=== PATIENT | female | born 1955 | race Caucasian/White ===

== ENCOUNTER 2019-04-03 13:36 | Emergency (ER) | payer SELFPAY ==
[2019-04-03 13:46] VITALS: BP 132/80
[2019-04-03] MEDS ORDERED: HYDROcod/ACETAM 5/325 MG TABLET PO STA (14:31)
--- NOTE | 2019-04-03 14:32 | ED Physician Documentation ---
PD HPI LOWER EXT INJURY - Stated complaint Stated Complaint: KNEE INJURY - Chief complaint Chief Complaint: Trauma Ext - History obtained from History obtained from: Patient (Last night she was walking her dog, the leash got yanked and she felt a pop on the medial side of the right knee with moderate pain. She is able to walk and bear weight. No other injuries. No history of trouble with that knee in the past.) Review of Systems Constitutional: reports: Reviewed and negative Throat: reports: Reviewed and negative Cardiac: reports: Reviewed and negative PD PAST MEDICAL HISTORY - Present Medications Home Medications: Ambulatory Orders Medication Instructions Recorded Confirmed Hydrocodone/Acetaminophen 1 - 2 each PO Q6H PRN #14 tablet 04/03/19 [Hydrocodon-Acetaminophen 5-325] - Allergies Allergies/Adverse Reactions: Allergies Allergy/AdvReac Type Severity Reaction Status Date / Time codeine Allergy Itching Verified 04/03/19 13:43 PD ED PE NORMAL - Vitals Vital signs reviewed: Yes - General General: Alert and oriented X 3, No acute distress - Abdomen Abdomen: Soft, Non tender - Extremities Extremities: Other (She is tender along the medial joint line and has a lot of pain with MCL testing. LCL, PCL, ACL testing is tight and painless. Negative grind testing. Minimal if any effusion.) - Neuro Neuro: Alert and oriented X 3, Normal speech Results - Vitals Vitals: Vital Signs - 24 hr 04/03/19 13:43 Temperature 36.7 C Heart Rate 88 Respiratory 15 Rate Blood Pressure 132/80 H O2 Saturation 97 Oxygen O2 Source Room air PD MEDICAL DECISION MAKING - ED course ED course: 63-year-old woman with knee injury consistent with an MCL strain, x-rays negative. Placed in knee immobilizer and advised that she needs to follow-up with orthopedics. Departure - Departure Disposition: Home, Self Care Clinical Impression: Strain of knee and leg, right Qualifiers: Encounter type: initial encounter Qualified Code(s): S86.911A - Strain of unspecified muscle(s) and tendon(s) at lower leg level, right leg, initial encounter Condition: Good Record reviewed to determine appropriate education?: Yes Instructions: MCL Sprain, ED Sprain Knee Collateral Ligaments Follow-Up: Fredy Schreiber MD [Provider Admit Priv/Credential] - Prescriptions: Hydrocodone/Acetaminophen [Hydrocodon-Acetaminophen 5-325] 1 - 2 each PO Q6H PRN #14 tablet PRN Reason: pain Comments: As discussed, your examination is consistent with a strain of the medial collateral ligament of the right knee. Follow-up with the orthopedic surgeon listed on this form, call today for an appointment. Keep the knee immobilizer on when you are up and around, you can walk and bear weight.
--- NOTE | 2019-04-03 15:09 | XRAY Report ---
Reason: knee inj Procedure Date: 04/03/2019 Accession Number: [id number] / [id number] Procedure: XR - Knee 4 View RT CPT Code: Final Report FULL RESULT: EXAM: RIGHT KNEE RADIOGRAPHY EXAM DATE: 04/03/2019 03:02 PM. CLINICAL HISTORY: Knee injury, pain. COMPARISON: None. TECHNIQUE: 4 views. FINDINGS: Bones: No acute fracture. Joints: No dislocation or subluxation. No significant degenerative change. A small joint effusion is present. Soft Tissues: Unremarkable. IMPRESSION: 1. No acute fracture or malalignment. 2. Small joint effusion. RADIA
== END 2019-04-03 15:37 | disposition home or self-care (01) ==
LOC: ED 13:36
DX: S86.911A Strain of unspecified muscle(s) and tendon(s) at lower leg level, right leg, initial encounter (principal); X50.1XXA Overexertion from prolonged static or awkward postures, initial encounter; Y93.K1 Activity, walking an animal
CPT/HCPCS: 73564; 99283; A9270

== ENCOUNTER 2019-08-17 20:37 | Emergency (ER) | payer OTHER ==
--- NOTE | 2019-08-17 21:30 | XRAY Report ---
Reason: twisted L knee, c/o pain Procedure Date: 08/17/2019 Accession Number: [id number] / [id number] Procedure: XR - Knee 3 View LT CPT Code: Final Report FULL RESULT: EXAM: LEFT KNEE RADIOGRAPHY EXAM DATE: 08/17/2019 09:20 PM. CLINICAL HISTORY: Twisted left knee, complaint of pain. COMPARISON: KNEE 4 VIEW RT 04/03/2019 2:57 PM. TECHNIQUE: 3 views. FINDINGS: Bones: Normal. No fractures or bone lesions. Joints: Normal. No effusion. No subluxations. Soft Tissues: Normal. No soft tissue swelling. IMPRESSION: Normal knee radiography. RADIA
[2019-08-17] MEDS ORDERED: IBUPROFEN 600 MG TABLET PO STA (21:32)
[2019-08-17] MEDS ORDERED: ACETAMINOPHEN 325 MG TABLET PO STA (21:32)
--- NOTE | 2019-08-17 21:32 | ED Physician Documentation ---
History of Present Illness - Stated complaint Stated Complaint: KNEE PX - Chief complaint Chief Complaint: Trauma Ext - Additonal information Additional information: This is a 64-year-old female who presents with left knee pain. She was walking her dog and her dog began chasing a cat causing her knee to twist. She has pain over the knee and the medial aspect and can a diffusely around the knee. She denies hearing any pop or crack. She did not fall or directly impact the knee. She is able to walk on the knee but it hurts quite a bit. She denies any numbness or weakness in the leg. Review of Systems Constitutional: denies: Fever Skin: denies: Rash, Abrasion (s) Musculoskeletal: reports: Extremity pain Neurologic: denies: Focal weakness PD PAST MEDICAL HISTORY - Past Medical History Past Medical History: No - Present Medications Home Medications: Ambulatory Orders Medication Instructions Recorded Confirmed Hydrocodone/Acetaminophen 1 - 2 each PO Q6H PRN #14 tablet 04/03/19 [Hydrocodon-Acetaminophen 5-325] - Allergies Allergies/Adverse Reactions: Allergies Allergy/AdvReac Type Severity Reaction Status Date / Time codeine Allergy Itching Verified 08/17/19 20:50 - Social History Does the pt smoke?: Yes Smoking Status: Current every day smoker Does the pt drink ETOH?: Yes Does the pt have substance abuse?: No - POLST Patient has POLST: No PD ED PE NORMAL - Vitals Vital signs reviewed: Yes - General General: Alert and oriented X 3, No acute distress - HEENT HEENT: PERRL - Neck Neck: Supple, no meningeal sign - Cardiac Cardiac: RRR, No murmur - Respiratory Respiratory: No respiratory distress - Abdomen Abdomen: Non distended - Derm Derm: Warm and dry - Extremities Extremities: Other (Mild edema around the left knee, no palpable effusion. There is some tenderness on the MCL, but no laxity with varus or valgus stress testing. Anterior posterior drawer testing is limited due to discomfort, but no severe laxity. Patient is able to flex and extend the knee with some discomfort. Distal strength of the ankle with dorsiflexion plantarflexion is 5 out of 5, distal pulses at the DP and PT pulses are normal at 2+. Sensation intact over the lower extremity.) - Neuro Neuro: Alert and oriented X 3 - Psych Psych: Normal mood, Normal affect Results - Vitals Vitals: Vital Signs - 24 hr 08/17/19 08/17/19 20:40 21:48 Temperature 36.6 C Heart Rate 65 83 Respiratory 16 18 Rate Blood Pressure 123/65 146/78 H O2 Saturation 98 98 Oxygen O2 Source Room air - Rads (name of study) XR L knee Radiology: Other (No acute osseous abnormality, no large effusion) PD MEDICAL DECISION MAKING - ED course ED course: Patient presents with knee pain after a twisting motion. She has tenderness around the left knee especially over the MCL, but no bony point tenderness. In- depth ligamentous testing is not able to be completely performed due to her discomfort. Her leg is neurovascularly intact. Her x-ray shows no acute abnormality, and given her range of motion and ability to bear some weight on the knee I doubt occult fracture. I do think is possible that she may have had a strain, sprain, or ligamentous injury to her knee, we discussed rest, ice, compression, elevation, and avoidance of any further trauma to the knee. She has a knee immobilizer at home that she would like to use from a prior MCL injury, so she was not outfitted with a new one here. I recommended crutches, patient does not feel that she can use crutches safely, she prefer to use her knee immobilizer and Feels safe and mobile enough with this support alone. She has an orthopedist that she is established with that she will follow-up with with continued symptoms, I discussed that if she is unable to see orthopedist she may also follow with her primary care provider. I provided her with a work note, we discussed return precautions, patient was discharged home in good condition. Departure - Departure Disposition: 01 Home, Self Care Clinical Impression: Left knee pain Qualifiers: Chronicity: acute Qualified Code(s): M25.562 - Pain in left knee Condition: Good Follow-Up: Your, orthopedist [Other] - Within 1 week Comments: Your x-ray did not show signs of injury to your bones, but you may have an injury to the ligaments or cartilage in your knee. Please wear your knee immobilizer as we discussed, take Tylenol and ibuprofen for discomfort, elevate the leg, and ice it. Avoid movements or activities that make your pain worse. Use crutches if needed. Follow-up with your orthopedist in the next week for a repeat exam, or with your primary care provider. If you are having worsening symptoms such as weakness or numbness, return to emergency department. Forms: Activity restrictions Discharge Date/Time: 08/17/19 21:54
[2019-08-17 21:49] VITALS: BP 146/78
== END 2019-08-17 21:54 | disposition home or self-care (01) ==
LOC: ED 20:37
DX: M25.562 Pain in left knee (principal); F17.200 Nicotine dependence, unspecified, uncomplicated
CPT/HCPCS: 73562; 99283; A9270

== ENCOUNTER 2019-09-15 15:15 | Outpatient (CLI) | payer OTHER ==
--- NOTE | 2019-09-15 16:48 | MRI Report ---
PROCEDURE: Knee LT W/O INDICATIONS: Knee pain and injury. TECHNIQUE: Noncontrast sagittal PD fast spin echo and T2 fast spin echo with fat saturation, sagittal 3-D gradie nt sequence with fat saturation; coronal T1 spin echo and PD fast spin echo with fat saturation, and axial PD fast spin echo with fat saturation through the knee. COMPARISON: None. FINDINGS: Image quality: Excellent. Menisci: There is linear oblique high T2 signal intensity traversing the posterior horn medial menisc us, demonstrating inferior articular surface extension. There is fragmentation of the anterior horn l ateral meniscus, indicating complex multifocal tearing. Cruciate ligaments: The anterior cruciate ligament demonstrates severe T2 signal elevation in mild r edundancy. Posterior cruciate ligament is intact. Medial structures: There is moderate grade partial-thickness tearing of the mid/superior aspect of th e medial collateral ligament. Visualized portions of the pes anserinus tendons appear normal. No abn ormal bursal fluid. Lateral structures: The lateral collateral ligament, long and short heads of the biceps femoris tend on appear intact. The popliteus tendon appears normal. Iliotibial band appears normal. Anterior structures: The quadriceps and patellar tendons appear intact. Lateral patellar subluxation is present. No femoral trochlear dysplasia or ventral trochlear prominence. Mild edema in the super olateral aspect of the infrapatellar fat pad. Bones and cartilage: No bone marrow contusions or fractures. There is mild ill-defined T2 signal int ensity within the anterior central aspect of the tibial plateau. There is mild ill-defined T2 signal elevation within the posterior weightbearing aspect of the lateral tibial plateau. Mild tricompartmen chai periarticular osteophyte formation is present. There is mild diffuse articular cartilage loss ove rlying the weightbearing aspects of the medial femoral condyle and medial tibial plateau. There is a superimposed full-thickness articular cartilage defect overlying the mid/posterior weightbearing aspe ct of the medial femoral condyle, measuring roughly 10 mm anteroposterior by 2 mm transverse. Moderat e diffuse articular cartilage loss overlies the weightbearing aspects of the lateral femoral condyle and lateral tibial plateau. 2 mm superimposed region of full-thickness articular cartilage loss overl ies the posterior weightbearing aspect of the lateral femoral condyle. Joint space: There is a moderate knee joint effusion and a moderate Mendoza?s cyst. Multiple intra-art icular loose bodies, largest of which is in the lateral aspect of the Mendoza's cyst measuring roughly 8 mm. Normal appearing synovial plicae are incidentally noted. IMPRESSION: 1. High-grade anterior cruciate ligament tear. 2. Medial and lateral meniscal tear. 3. Contusions within the tibial plateau. 4. Tricompartmental osteoarthritis with associated articular cartilage loss. 5. Knee joint effusion and Mendoza's cyst. Intra-articular loose bodies. 6. Partial thickness medial collateral ligament tear. 7. Findings consistent with lateral patellofemoral friction syndrome in the appropriate clinical sett ing. Reviewed by: Buffy Morales MD on 09/15/2019 4:47 PM PDT Approved by: Buffy Morales MD on 09/15/2019 4:47 PM PDT Station ID: [id number]
== END 2019-09-15 15:16 | disposition home or self-care (01) ==
LOC: DI 15:15
PROVIDERS: ATTEND Orthopaedic Surgery
DX: S83.512A Sprain of anterior cruciate ligament of left knee, initial encounter (principal); S83.242A Other tear of medial meniscus, current injury, left knee, initial encounter; S83.282A Other tear of lateral meniscus, current injury, left knee, initial encounter; S83.412A Sprain of medial collateral ligament of left knee, initial encounter; S80.12XA Contusion of left lower leg, initial encounter; M71.22 Synovial cyst of popliteal space [Baker], left knee; M17.12 Unilateral primary osteoarthritis, left knee

== ENCOUNTER 2020-02-29 08:00 | Outpatient (CLI) | payer OTHER | END 2020-02-29 23:59 | disposition home or self-care (01) | LOC: LAB.R 08:00 | PROVIDERS: ATTEND Physician Assistant Medical | DX: J40 Bronchitis, not specified as acute or chronic (principal); Z20.828 Contact with and (suspected) exposure to other viral communicable diseases ==

== ENCOUNTER 2020-02-29 10:51 | Outpatient (CLI) | payer OTHER ==
--- NOTE | 2020-02-29 11:13 | XRAY Report ---
PROCEDURE: Chest 2 View X-Ray INDICATIONS: BRONCHITIS TECHNIQUE: 2 view(s) of the chest. COMPARISON: None. FINDINGS: Surgical changes and devices: None. Lungs and pleura: No pleural effusions or pneumothorax. Lungs are clear. Mediastinum: Mediastinal contours are normal. Heart size is normal. Bones and chest wall: No suspicious bony abnormalities. Soft tissues appear unremarkable. IMPRESSION: No acute cardiopulmonary abnormality identified. Reviewed by: Jeyson Metcalf MD on 02/29/2020 11:11 AM [facility] Approved by: Jeyson Metcalf MD on 02/29/2020 11:11 AM [facility] Station ID: [id number]
== END 2020-02-29 23:59 | disposition home or self-care (01) ==
LOC: DI.N 10:51
PROVIDERS: ATTEND Physician Assistant Medical
DX: J40 Bronchitis, not specified as acute or chronic (principal)

== ENCOUNTER 2020-03-07 08:00 | Outpatient (CLI) | payer OTHER | END 2020-03-07 23:59 | disposition home or self-care (01) | LOC: LAB.R 08:00 | PROVIDERS: ATTEND Nurse Practitioner | DX: J06.9 Acute upper respiratory infection, unspecified (principal); Z20.828 Contact with and (suspected) exposure to other viral communicable diseases | CPT/HCPCS: 87275; 87276 ==

== ENCOUNTER 2020-03-07 12:37 | Outpatient (CLI) | payer OTHER ==
--- NOTE | 2020-03-07 14:37 | XRAY Report ---
PROCEDURE: Chest 2 View X-Ray INDICATIONS: ACUTE UPPER RESPIRATORY INFECTION TECHNIQUE: 2 views of the chest. COMPARISON: Chest radiographs 02/29/2020 FINDINGS: Surgical changes and devices: None. Lungs and pleura: No pleural effusions or pneumothorax. Lungs are clear. Mediastinum: Mediastinal contours are normal. Heart size is normal. Bones and chest wall: No suspicious bony abnormalities. Soft tissues appear unremarkable. IMPRESSION: No acute cardiopulmonary abnormality. Reviewed by: Shmuel Carter MD on 03/07/2020 1:35 PM [facility] Approved by: Shmuel Carter MD on 03/07/2020 1:35 PM [facility] Station ID: [id number]
== END 2020-03-07 23:59 | disposition home or self-care (01) ==
LOC: DI.N 12:37
PROVIDERS: ATTEND Nurse Practitioner
DX: J06.9 Acute upper respiratory infection, unspecified (principal)

== ENCOUNTER 2020-12-06 08:00 | Outpatient (CLI) | payer OTHER | END 2020-12-06 23:59 | disposition home or self-care (01) | LOC: LAB.N 08:00 | PROVIDERS: ATTEND Family Medicine | DX: J06.9 Acute upper respiratory infection, unspecified (principal); Z20.822 Contact with and (suspected) exposure to COVID-19 ==

== ENCOUNTER 2020-12-10 12:24 | Outpatient (CLI) | payer OTHER ==
--- NOTE | 2020-12-10 18:17 | XRAY Report ---
PROCEDURE: Chest 2 View X-Ray INDICATIONS: WALKING PNEUMONIA TECHNIQUE: 2 view(s) of the chest. COMPARISON: 03/07/2020, 02/29/2020 FINDINGS: Surgical changes and devices: None. Lungs and pleura: No pleural effusions or pneumothorax. Lungs are clear. Mediastinum: Mediastinal contours are normal. Heart size is normal. Bones and chest wall: No suspicious bony abnormalities. Age-appropriate degenerative changes are see n. S-shaped scoliotic curvature is incidentally noted. Soft tissues appear unremarkable. IMPRESSION: Negative for infiltrate. Reviewed by: Allan Aelman MD on 12/10/2020 5:15 PM [facility] Approved by: Allan Aleman MD on 12/10/2020 5:15 PM [facility] Station ID: [id number]
== END 2020-12-10 23:59 | disposition home or self-care (01) ==
LOC: DI.N 12:24
PROVIDERS: ATTEND Nurse Practitioner
DX: J18.9 Pneumonia, unspecified organism (principal); Z20.822 Contact with and (suspected) exposure to COVID-19

== ENCOUNTER 2021-08-11 16:23 | Outpatient (CLI) | payer OTHER ==
[2021-08-11] MEDS ORDERED: ALBUTEROL 1 PUFF INH STA (18:20)
== END 2021-08-11 16:24 | disposition home or self-care (01) ==
LOC: RT 16:23
PROVIDERS: ATTEND Registered Nurse
DX: J98.8 Other specified respiratory disorders (principal); Z72.0 Tobacco use
CPT/HCPCS: 94060; 94729

== ENCOUNTER 2021-12-06 17:59 | Outpatient (CLI) | payer OTHER ==
--- NOTE | 2021-12-07 04:07 | XRAY Report ---
PROCEDURE: Knee 2 View RT INDICATIONS: RIGHT KNEE POPLITEAL CYST TECHNIQUE: 3 views of the right knee including bilateral AP standing view of both knees were acquire d. COMPARISON: 04/03/2019. FINDINGS: Bones: No fractures or dislocations. Joint spaces in the medial and lateral compartments appear pres erved. No suspicious bony lesions. Soft tissues: There is a moderate joint effusion. No suspicious soft tissue calcifications. IMPRESSION: 1. No acute bony abnormality. 2. Moderate joint effusion. Reviewed by: Paulo Friedman MD on 12/07/2021 4:06 AM PDT Approved by: Paulo Friedman MD on 12/07/2021 4:06 AM PDT Station ID: [id number]
== END 2021-12-06 18:00 | disposition home or self-care (01) ==
LOC: DI.S 17:59
PROVIDERS: ATTEND Internal Medicine
DX: M25.461 Effusion, right knee (principal)

== ENCOUNTER 2022-01-15 08:51 | Outpatient (CLI) | payer OTHER ==
--- NOTE | 2022-01-27 11:10 | Mammography Report ---
BILATERAL DIGITAL SCREENING MAMMOGRAM 3D/2D: 01/15/2022 CLINICAL: Routine screening. No prior exams were available for comparison. There are scattered areas of fibroglandular density in both breasts (category b / 25%-50% glandular t issue). No significant masses, calcifications, or other findings are seen in either breast. IMPRESSION: NEGATIVE There is no mammographic evidence of malignancy. A 1 year screening mammogram is recommended. Based on the Tyrer Cuzick model (a risk assessment model) the patients lifetime risk is 4.7% and her 10 year risk is 2.3%. According to the ACR, ACS, and NCCN guidelines, an annual breast MRI exam flaco g with mammogram is recommended if the patients lifetime risk is 20% or greater. This exam was interpreted at Station ID: [id number]. NOTE: For mammograms, a report in lay terms will be sent to the patient. Approximately 15% of breast malignancies will not be visualized mammographically. In the management of a palpable breast mass, a negative mammogram must not discourage biopsy of a clinically suspicious lesion. Electronically Signed By: Jeyson queen/penrad:01/27/2022 08:30:26 ACR BI-RADS Category 1: Negative 3341F PARENCHYMAL PATTERN: (A) - The breast(s) demonstrate(s) scattered fibroglandular densities. BI-RADS CATEGORY: (1) - 1 RECOMMENDATION: (ANNUAL) - Recommend routine annual screening mammography. [id number] 1 year screening LATERALITY: (B)
== END 2022-01-15 08:52 | disposition home or self-care (01) ==
LOC: DI.N 08:51
DX: Z12.31 Encounter for screening mammogram for malignant neoplasm of breast (principal)

== ENCOUNTER 2023-01-14 09:33 | Outpatient (CLI) | payer OTHER ==
--- NOTE | 2023-01-15 10:01 | Mammography Report ---
BILATERAL DIGITAL SCREENING MAMMOGRAM 3D/2D: 01/14/2023 CLINICAL: Routine screening. Comparison is made to exam dated: 01/15/2022 mammogram - [facility]. There are scattered areas of fibroglandular density in both breasts (category b / 25%-50% glandular t issue). No significant masses, calcifications, or other findings are seen in either breast. There has been no significant interval change. IMPRESSION: NEGATIVE There is no mammographic evidence of malignancy. A 1 year screening mammogram is recommended. Based on the Tyrer Cuzick model (a risk assessment model) the patients lifetime risk is 4.5% and her 10 year risk is 2.3%. According to the ACR, ACS, and NCCN guidelines, an annual breast MRI exam flaco g with mammogram is recommended if the patients lifetime risk is 20% or greater. This exam was interpreted at Station ID: [id number]. NOTE: For mammograms, a report in lay terms will be sent to the patient. Approximately 15% of breast malignancies will not be visualized mammographically. In the management of a palpable breast mass, a negative mammogram must not discourage biopsy of a clinically suspicious lesion. Electronically Signed By: Manuel Kingsley M.D. aty/:01/15/2023 07:29:40 letter sent: No_Letter ACR BI-RADS Category 1: Negative 3341F PARENCHYMAL PATTERN: (A) - The breast(s) demonstrate(s) scattered fibroglandular densities. BI-RADS CATEGORY: (1) - 1 Mammogram [id number] 1 year screening LATERALITY: (B)
== END 2023-01-14 09:34 | disposition home or self-care (01) ==
LOC: DI.N 09:33
PROVIDERS: ATTEND Registered Nurse
DX: Z12.31 Encounter for screening mammogram for malignant neoplasm of breast (principal); R92.323 Mammographic fibroglandular density, bilateral breasts

== ENCOUNTER 2023-02-17 12:13 | Emergency (ER) | payer OTHER, MEDICARE ==
[2023-02-17 12:33] VITALS: BP 129/63; O2SAT 99
--- NOTE | 2023-02-17 13:20 | XRAY Report ---
PROCEDURE: Chest 1 View X-Ray INDICATIONS: cough TECHNIQUE: One view of the chest was acquired. COMPARISON: Chest x-ray 12/10/2020 FINDINGS: Surgical changes and devices: None. Lungs and pleura: No pleural effusions or pneumothorax. Lungs are clear. Mediastinum: Mediastinal contours appear normal. Heart size is normal. Bones and chest wall: No suspicious bony lesions. Overlying soft tissues appear unremarkable. IMPRESSION: No acute cardiopulmonary process. Reviewed by: Deandra Hutton MD on 02/17/2023 1:19 PM [facility] Approved by: Deandra Hutton MD on 02/17/2023 1:19 PM [facility] Station ID: [id number]
[2023-02-17 13:33] LABS: CORONAVIRUS 229E-RESP PCR NOT DETECTED; CORONAVIRUS HKU1-RESP PCR NOT DETECTED; CORONAVIRUS NL63-RESP PCR NOT DETECTED; CORONAVIRUS OC43-RESP PCR NOT DETECTED; HUMAN METAPNEUMOVIRUS NOT DETECTED; INFLUENZA A- RESP PCR PANEL NOT DETECTED; INFLUENZA B - RESP PCR PANEL NOT DETECTED; PARAINFLUENZA VIRUS 1 NOT DETECTED; PARAINFLUENZA VIRUS 2 NOT DETECTED; PARAINFLUENZA VIRUS 3 NOT DETECTED; RHINOVIRUS/ENTEROVIRUS NOT DETECTED; SARS-CoV-2 -RESP PCR PANEL NOT DETECTED
[2023-02-17 13:34] LABS: B. PARAPERTUSSIS- RESP PCR PAN NOT DETECTED; B. PERTUSSIS- RESP PCR PANEL NOT DETECTED; C. PNEUMONIAE- RESP PCR PANEL NOT DETECTED; M. PNEUMONIAE- RESP PCR PANEL NOT DETECTED; PARAINFLUENZA VIRUS 4 NOT DETECTED; RSV- RESP PCR PANEL NOT DETECTED
--- NOTE | 2023-02-17 14:07 | ED Physician Documentation ---
History of Present Illness - Stated complaint Stated Complaint: SOA,COUGH,CONGESTION - Chief complaint Chief Complaint: Resp - Additonal information Additional information: 67-year-old female presents emergency department for evaluation of cough and congestion has been present for a week. Reports cough is productive particularly bad at night despite trying to sleep upright on pillows. She is a current tobacco user, smoking 3 cigarettes a day on average. No fevers. She was seen a local walk-in clinic last week and given Tessalon Perles without relief. Review of Systems Constitutional: denies: Fever Nose: reports: Rhinorrhea / runny nose, Congestion Respiratory: reports: Cough. 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 PHARMACEUTICAL: Ectopic Psych: Depression, Anxiety Other Past Medical History: bronchitis - Past Surgical History Past Surgical History: No - Present Medications Home Medications: Ambulatory Orders Medication Instructions Recorded Confirmed Albuterol Sulf [Ventolin Hfa 1 - 2 puffs INH Q4HR PRN 02/17/23 02/17/23 Inhaler] Benzonatate [Tessalon] 100 mg PO TID PRN 02/17/23 02/17/23 Propranolol [Inderal] 10 mg PO TID PRN 02/17/23 02/17/23 Sertraline [Zoloft] 50 mg PO DAILY 02/17/23 02/17/23 - Allergies Allergies/Adverse Reactions: Allergies Allergy/AdvReac Type Severity Reaction Status Date / Time codeine Allergy Itching Verified 02/17/23 12:30 - Social History Does the pt smoke?: Yes Smoking Status: Current every day smoker Does the pt drink ETOH?: Yes Does the pt have substance abuse?: No - POLST Patient has POLST: No PD ED PE NORMAL - General General: Alert and oriented X 3, Well developed/nourished - HEENT HEENT: Atraumatic, Ears normal, Moist mucous membranes - Neck Neck: Supple, no meningeal sign - Cardiac Cardiac: RRR, No murmur - Respiratory Respiratory: No respiratory distress, Clear bilaterally - Abdomen Abdomen: Normal bowel sounds, Soft Results - Vitals Vitals: Vital Signs - 24 hr 02/17/23 12:23 Temperature 36.5 C Heart Rate 82 Respiratory 16 Rate Blood Pressure 129/63 O2 Saturation 99 Oxygen O2 Source Room air - Labs Labs: Laboratory Tests 02/17/23 12:34 Nasal Adenovirus (PCR) NOT DETECTED Nasal B. parapertussis DNA (PCR) NOT DETECTED Nasal Coronavir 229E PCR NOT DETECTED Nasal Coronavir HKU1 PCR NOT DETECTED Nasal Coronavir NL63 PCR NOT DETECTED Nasal Coronavir OC43 PCR NOT DETECTED Nasal Enterovir/Rhinovir PCR NOT DETECTED Nasal Influenza B PCR NOT DETECTED Nasal Influenza A PCR NOT DETECTED Nasal Parainfluen 1 PCR NOT DETECTED Nasal Parainfluen 2 PCR NOT DETECTED Nasal Parainfluen 3 PCR NOT DETECTED Nasal Parainfluen 4 PCR NOT DETECTED Nasal RSV (PCR) NOT DETECTED Nasal B.pertussis DNA PCR NOT DETECTED Nasal C.pneumoniae (PCR) NOT DETECTED Jesus Alberto Human Metapneumo PCR NOT DETECTED Nasal M.pneumoniae (PCR) NOT DETECTED Nasal SARS-CoV-2 (PCR) NOT DETECTED - Rads (name of study) cxr Relevant Findings:: Final report received (no acute cardiopulmonary process) PD Medical Decision Making - ED course Complexity details: reviewed results, d/w patient ED course: 67-year-old female presents emergency department for evaluation of cough and congestion that began a week ago. Unresponsive Tessalon Perles. No fevers. States cough is worse at night especially when laying flat though she has been trying to sleep upright. Has taken Robitussin without relief of symptoms. Here in the ER chest x-ray is without acute focal findings or opacities. Cardiopulmonary auscultation was unremarkable. Room air sats were 99%. She sounds quite congested but had no significant tenderness with palpation of the sinuses. Respiratory PCR panel was negative. Clinically I suspected that she had a viral URI that should be quickly resolving. Clinically I do not believe that she has a bacterial bronchitis, pneumonia or bacterial sinusitis that would benefit from antibiotics at this juncture. I have made the recommendation for her to use Sudafed or Afrin nasal spray during the daytime. Limit use to no more than 3 days. Consider Benadryl at night. Otherwise the usual emergent return precautions were discussed for failure symptoms resolved. Departure - Departure Disposition: 01 Home, Self Care Clinical Impression: Congestion of upper airway Condition: Stable Record reviewed to determine appropriate education?: Yes Comments: Your chest x-ray is normal. Your viral panel is negative. You have a lot of sinus congestion is causing your symptoms. I recommend use Sudafed during the daytime or Afrin to help with congestion. Benadryl at night can help dry the sinuses. Most upper respiratory infections begin to get better between 7 and 10 days. Return to the ER for fevers, severe chest pain or shortness of air.
== END 2023-02-17 14:24 | disposition home or self-care (01) ==
LOC: ED 12:13
DX: J98.8 Other specified respiratory disorders (principal); F17.210 Nicotine dependence, cigarettes, uncomplicated; Z11.52 Encounter for screening for COVID-19; Z79.899 Other long term (current) drug therapy
CPT/HCPCS: 87633; 99283; 99284

== ENCOUNTER 2023-08-13 14:45 | Outpatient (CLI) | payer MEDICARE, OTHER ==
--- NOTE | 2023-08-13 17:06 | XRAY Report ---
PROCEDURE: Ankle 3+V RT INDICATIONS: SPRAIN OF OTHER LIGAMENT OF RIGHT ANKLE TECHNIQUE: 3 views of the ankle were acquired. COMPARISON: None. FINDINGS: Bones: Acute, oblique, mildly displaced fracture of the distal fibular diaphysis which extends to th e syndesmosis. Ankle mortise is normally aligned on nonweightbearing view. No suspicious bony lesio ns. Soft tissues: No tibiotalar joint effusion. Achilles tendon appears normal. IMPRESSION: Acute, oblique, mildly displaced fracture of the distal fibular diaphysis (Lopez B). Reviewed by: Jean Cagle MD on 08/13/2023 5:05 PM PDT Approved by: Jean Cagle MD on 08/13/2023 5:05 PM PDT Station ID: [id number]
== END 2023-08-13 15:00 | disposition home or self-care (01) ==
LOC: DI.N 14:45
PROVIDERS: ATTEND Physician Assistant Medical
DX: S93.491A Sprain of other ligament of right ankle, initial encounter (principal); S82.431A Displaced oblique fracture of shaft of right fibula, initial encounter for closed fracture

== ENCOUNTER 2023-08-19 10:38 | Outpatient (CLI) | payer MEDICARE ==
--- NOTE | 2023-08-19 15:31 | XRAY Report ---
PROCEDURE: Ankle 3+V RT INDICATIONS: NONDISPLACED FRACTURE OF LATERAL MALLEOLUS OF RIGHT FIBULA TECHNIQUE: 3 views of the ankle were acquired. COMPARISON: Right ankle radiograph on August 13, 2023. FINDINGS: Bones: Similar appearance of mildly displaced, oblique fracture of the distal fibular diaphysis. Sta ble alignment. Ankle mortise is normally aligned. No suspicious bony lesions. Soft tissues: No tibiotalar joint effusion. Achilles tendon appears normal. Soft tissue swelling o verlying the lateral malleolus has mildly decreased. IMPRESSION: Similar appearance of mildly displaced, oblique fracture of the distal fibular diaphysis. Reviewed by: Jean Cagle MD on 08/19/2023 3:30 PM PDT Approved by: Jean Cagle MD on 08/19/2023 3:30 PM PDT Station ID: [id number]
== END 2023-08-19 10:39 | disposition home or self-care (01) ==
LOC: DI.N 10:38
PROVIDERS: ATTEND Orthopaedic Surgery
DX: S82.831D Other fracture of upper and lower end of right fibula, subsequent encounter for closed fracture with routine healing (principal)

== ENCOUNTER 2023-09-25 08:22 | Outpatient (CLI) | payer MEDICARE ==
--- NOTE | 2023-09-25 19:35 | XRAY Report ---
PROCEDURE: Ankle 3+V RT INDICATIONS: NONDISPLACED FX LOWER LEG TECHNIQUE: 3 views of the ankle were acquired. COMPARISON: 08/19/2023 FINDINGS: Bones: Oblique distal radial fracture shows increased remodeling and bridging callus. Normal bone mi neralization. No displacement Soft tissues: Unremarkable without significant soft tissue swelling. No radiopaque foreign body. IMPRESSION: Healing distal fibular fracture. Ankle mortise is maintained Reviewed by: Justo Garcia MD on 09/25/2023 6:34 PM [place] Approved by: Justo Garcia MD on 09/25/2023 6:34 PM [place] Station ID: [id number]
== END 2023-09-25 08:23 | disposition home or self-care (01) ==
LOC: DI.N 08:22
PROVIDERS: ATTEND Orthopaedic Surgery
DX: S82.64XD Nondisplaced fracture of lateral malleolus of right fibula, subsequent encounter for closed fracture with routine healing (principal)

== ENCOUNTER 2023-10-29 10:43 | Outpatient (CLI) | payer MEDICARE ==
--- NOTE | 2023-10-29 15:06 | XRAY Report ---
PROCEDURE: Ankle 3+V RT INDICATIONS: NONDISPLACED FX OF LATERAL MALLEOLUS OF R FIBULA TECHNIQUE: 3 views of the ankle were acquired. COMPARISON: 08/19/2023, 09/25/2023 FINDINGS: Bones: Continued interval healing of the oblique fracture through the distal fibula, at the level of the syndesmosis. No change in alignment. Ankle mortise is maintained. Soft tissues: Moderate tibiotalar joint effusion. Achilles tendon appears normal. IMPRESSION: Interval healing of the distal fibula fracture at the level of the syndesmosis. Ankle mortise is main tained. Reviewed by: Arun Maldonado MD on 10/29/2023 3:05 PM PDT Approved by: Arun Maldonado MD on 10/29/2023 3:05 PM PDT Station ID: [id number]
== END 2023-10-29 10:44 | disposition home or self-care (01) ==
LOC: DI 10:43
PROVIDERS: ATTEND Orthopaedic Surgery
DX: S82.64XD Nondisplaced fracture of lateral malleolus of right fibula, subsequent encounter for closed fracture with routine healing (principal)

== ENCOUNTER 2023-12-03 09:58 | Outpatient (CLI) | payer MEDICARE ==
--- NOTE | 2023-12-03 18:52 | CT Report ---
PROCEDURE: Lung Cancer Screen INDICATIONS: TOBACCO USE TECHNIQUE: A CT scan of the chest was performed. Intravenous contrast media was not administered. Images were re corded and evaluated at appropriate window settings. Reformats: axial MIP of the chest, coronal and s agittal. For radiation dose reduction, the following was used: automated exposure control, adjustment of mA and/or kV according to patient size. COMPARISON: None. FINDINGS: Image quality: Diagnostic. Prior cancer history: Unsure. Lungs and pleura: No pleural effusions. No pneumothorax. Subsegmental atelectasis. Scattered pulmona ry nodules and indexed nodules as follows: -Subpleural left lower lobe nodule measuring 4 mm (4/72, MIP image 108) -Left apical 5 mm part solid nodule (4/20, MIP image 29) Mediastinum: Heart size is normal. No pericardial effusion. No large vessel abnormality. No mediastin al adenopathy by size criteria. Chest wall and lower neck: Thyroid is unremarkable. No axillary or supraclavicular adenopathy by size . Bones: No aggressive osseous abnormality. Upper Abdomen: Unremarkable. IMPRESSION: Scattered sub-6 mm pulmonary nodules. Lung RAD: 2 - Benign. Recommendation: Continue annual screening in 12 Months with LDCT Non-Lung Significant Findings: None. Reviewed by: Abby Smith MD, PhD on 12/03/2023 6:51 PM PDT Approved by: Abby Smith MD, PhD on 12/03/2023 6:51 PM PDT Station ID: [id number]
== END 2023-12-03 09:59 | disposition home or self-care (01) ==
LOC: DI 09:58
PROVIDERS: ATTEND Registered Nurse
DX: Z12.2 Encounter for screening for malignant neoplasm of respiratory organs (principal); F17.210 Nicotine dependence, cigarettes, uncomplicated; R92.8 Other abnormal and inconclusive findings on diagnostic imaging of breast

== ENCOUNTER 2023-12-04 11:15 | Outpatient (CLI) | payer MEDICARE ==
[2023-12-04 18:34] LABS: ALBUMIN/GLOBULIN RATIO 1.2 (1.0-2.2); BILIRUBIN,TOTAL 0.9 mg/dL (0.2-1.0); CALCIUM 9.2 mg/dL (8.5-10.3); CREATININE 0.6 mg/dL (0.6-1.3); POTASSIUM 4.2 mmol/L (3.5-4.5); TOTAL PROTEIN 7.3 g/dL (6.4-8.9)
[2023-12-04 19:02] LABS: BASOPHILS # (AUTO) 0.1 10^3/uL (0.0-0.1); BASOPHILS % (AUTO) 1.9 %; EOSINOPHILS # (AUTO) 0.1 10^3/uL (0.0-0.7); EOSINOPHILS % (AUTO) 1.1 %; HCT - HEMATOCRIT 28.7 % (37.0-47.0); HGB - HEMOGLOBIN 7.2 g/dL (12.0-16.0); LYMPHOCYTES # (AUTO) 0.7 10^3/uL (1.5-3.5); LYMPHOCYTES % (AUTO) 13.3 %; MEAN CORPUSCULAR HEMOGLOBIN 15.9 pg (27.0-31.0); MEAN CORPUSCULAR HGB CONC 25.1 g/dL (32.0-36.0); MEAN CORPUSCULAR VOLUME 63.4 fL (81.0-99.0); MEAN PLATELET VOLUME 8.6 fL (7.9-10.8); MONOCYTES # (AUTO) 0.9 10^3/uL (0.0-1.0); MONOCYTES % (AUTO) 16.2 %; NEUTROPHILS # (AUTO) 3.5 10^3/uL (1.5-6.6); NEUTROPHILS % (AUTO) 66.9 %; NRBC ABSOLUTE COUNT (AUTO) 0.05 x10^3/uL; PLT - PLATELET COUNT 342 10^3/uL (130-450); RED BLOOD COUNT 4.53 10^6/uL (4.20-5.40); RED CELL DISTRIBUTION WIDTH 21.1 % (12.0-15.0); WHITE BLOOD COUNT 5.3 x10^3/uL (4.8-10.8)
[2023-12-04 19:37] LABS: PLATELET ESTIMATE, MANUAL NORMAL (130-450,000) (NORMAL); PLATELET MORPHOLOGY NORMAL APPEARANCE (NORMAL); SLIDE REVIEW? Indicated
== END 2023-12-04 11:30 | disposition home or self-care (01) ==
LOC: LAB.N 11:15
PROVIDERS: ATTEND Physician Assistant Medical
DX: R19.7 Diarrhea, unspecified (principal); R14.0 Abdominal distension (gaseous)
CPT/HCPCS: 36415; 80053; 82150; 83690; 85025